=== PATIENT | male | born 1940 | race Two or more races ===

== ENCOUNTER 2016-11-03 14:39 | Day surgery (SDC) | payer MEDICARE, OTHER ==
[2016-10-29 10:50] VITALS: BMI 32.1
[~2016-11-03 14:39] MED LIST: LACTATED RINGERS 1,000 ML IV SCH; LIDOCAINE 1% 20 ML VIAL (10MG/ML) FOR IV START INTRADERMA PRN
[2016-11-03 15:02] VITALS: TEMP 97.9
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
[2016-11-03] MEDS ORDERED: PROPOFOL 10 MG/ML 20 ML VIAL IV ONE (16:02)
[2016-11-03] MEDS ORDERED: LIDOCAINE 1% INJ 10MG/ML (20 ML MDV) ONE (16:02)
--- NOTE | 2016-11-03 16:20 | P.OP ---
Date of Procedure: 11/03/16 Preoperative Diagnosis: Screening colonoscopy Postoperative Diagnosis: Mild diverticulosis Procedure(s) Performed: Colonoscopy Anesthesia: MAC Surgeon: Pérez Demarco Pathology: none sent Condition: stable Disposition: PACU Description of Procedure: PROCEDURE: The patient was placed on the endoscopy table in the lateral position. Digital rectal examination was performed which revealed no abnormalities. The prostate was symmetrical without nodules. Flexible colonoscope was then placed in the patient's anus and passed throughout the entire colon. The ileocecal valve was visualized. The cecum, ascending, transverse, desc colon were normal. The scope was brought back the descending and sigmoid colon there is mild diverticular changes. The rectum was normal. Scope was withdrawn for patient.
[2016-11-03 16:29] VITALS: RESP 18
[2016-11-03 16:46] VITALS: BP 137/71; PULSE 54
== END 2016-11-03 16:54 | disposition home or self-care (01) ==
LOC: ORWHC2ENDO 14:39
PROVIDERS: ATTEND Surgery
DX: K57.30 Diverticulosis of large intestine without perforation or abscess without bleeding (principal); E78.5 Hyperlipidemia, unspecified; E07.9 Disorder of thyroid, unspecified; Z79.82 Long term (current) use of aspirin; Z79.899 Other long term (current) drug therapy; Z86.010 Personal history of colon polyps; Z87.891 Personal history of nicotine dependence
CPT/HCPCS: 45378; J2001; J2704

== ENCOUNTER → 2019-10-26 | Outpatient (CLI) | payer MEDICARE, OTHER ==
--- NOTE | 2019-10-26 11:12 | EST ---
EXERCISE STRESS AGE: 79 SEX: M HT: 74" WT: 250 PROTOCOL: Cardiolite Ortiz Stress Test STAGE: 2 DURATION OF EXERCISE: 4:44 HEART RATE REST: 57 BLOOD PRESSURE REST: 133/80 MAXIMUM HEART RATE ACHIEVED: 141 MAXIMUM BLOOD PRESSURE: 203/88 85% MPHR: 121 100% MPHR: 142 METS: 6.6 INDICATIONS: Chest pain. CLINICAL INFORMATION: Baseline EKG shows sinus rhythm, normal axis, normal intervals. Patient exercised on Ortiz protocol for a total of 4.5 minutes achieving 6 METS, 99% of predicted maximal heart rate without chest pain or diagnostic ST-segment depression. Occasional PVCs are noted throughout the study. CONCLUSION: 1. Limited exercise tolerance. 2. Negative stress test by EKG criteria. 3. Cardiolite portion of the stress test will be reported separately. MMODL / IJN: [id number] /
--- NOTE | 2019-10-26 13:56 | NM ---
EXAMINATION TYPE: NM stress cardiolite complete DATE OF EXAM: 10/26/2019 COMPARISON: NONE HISTORY: Chest pain TECHNIQUE: After the intravenous administration of 10.31 mCi Tc 99m Sestamibi - Cardiolite resting S PECT images acquired 55 minutes post injection. The patient received 25.1 mCi Tc 99m Sestamibi - Stress images obtained 10 minutes post injection . P atient was stressed under Ortiz protocol FINDINGS: Very minimal diminished radiotracer accumulation is along the distal lateral wall near the cardiac ap ex on stress images. This area has normal radiotracer on resting images. This is not as well-visualiz ed in the axial plane. This area appears to correlate with the polar map. Ejection fraction of 55% is normal. Wall motion appears normal IMPRESSION: Very small stress-induced ischemic change along the lateral wall adjacent to the cardiac apex with no rmal radiotracer at rest. Remaining radiotracer distribution is normal. Ejection fraction wall motion appears normal.
== END | disposition home or self-care (01) ==
LOC: RADNMMAIN 07:40
PROVIDERS: ATTEND Family Medicine
DX: R94.39 Abnormal result of other cardiovascular function study (principal)
CPT/HCPCS: 93017; 78452; A9500

== ENCOUNTER → 2021-07-09 | Day surgery (SDC) | payer MEDICARE, OTHER ==
[2021-07-07 10:29] VITALS: BMI 32.1
[~2021-07-09] MED LIST changes: +LIDOCAINE 1% (10MG/ML) FOR IV START INTRADERMA PRN; -LIDOCAINE 1% 20 ML VIAL (10MG/ML) FOR IV START INTRADERMA PRN; +PROPOFOL 10 MG/ML 20 ML VIAL IV ONE
[2021-07-09 09:49] VITALS: TEMP 97.4
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
--- NOTE | 2021-07-09 12:16 | P.OP ---
Date of Procedure: 07/09/21 Preoperative Diagnosis: Screening colonoscopy Postoperative Diagnosis: Diverticulosis Procedure(s) Performed: colonoscopy Anesthesia: MAC Surgeon: Pérez Demarco Pathology: none sent Condition: stable Disposition: PACU Description of Procedure: The patient's placed on the endoscopy table in the lateral position. He received IV sedation. Digital rectal exam was performed which revealed no abnormalities. The prostate was symmetric without nodules. Flexible colonoscope was then placed patient anus passed throughout the entire colon the ileocecal valve was visualized. Cecum, ascending and transverse colon appeared normal. In the descending and sigmoid colon there was moderate diverticular changes. The scope was then brought back the rectum and this appeared normal. Scope withdrawn for patient.
[2021-07-09 12:34] VITALS: BP 113/84; PULSE 56; RESP 14
== END ==
LOC: ORWHC2ENDO 08:51
PROVIDERS: ATTEND Surgery
DX: Z12.11 Encounter for screening for malignant neoplasm of colon (principal); K57.30 Diverticulosis of large intestine without perforation or abscess without bleeding; Z86.010 Personal history of colon polyps; E78.5 Hyperlipidemia, unspecified; E07.9 Disorder of thyroid, unspecified; R42 Dizziness and giddiness; Z98.890 Other specified postprocedural states; Z87.891 Personal history of nicotine dependence; Z97.2 Presence of dental prosthetic device (complete) (partial); M19.90 Unspecified osteoarthritis, unspecified site; Z80.9 Family history of malignant neoplasm, unspecified; Z79.82 Long term (current) use of aspirin; Z79.890 Hormone replacement therapy; Z79.899 Other long term (current) drug therapy
CPT/HCPCS: J2704; G0105

== ENCOUNTER → 2024-03-02 | Day surgery (SDC) | payer MEDICARE, OTHER ==
[~2024-03-02] MED LIST changes: +ALPRAZolam 0.25 MG TAB PO PRN; +ALPRAZolam 0.5 MG TAB PO PRN; +HEPARIN SODIUM 1,000 UN/ML (10ML VL) ONE; -LACTATED RINGERS 1,000 ML IV SCH; -LIDOCAINE 1% (10MG/ML) FOR IV START INTRADERMA PRN; +LIDOCAINE 1% INJ 10MG/ML (20 ML MDV) ONE; +NITROGLYCERIN SL TABS 0.4 MG TAB SUBLINGUAL PRN; -PROPOFOL 10 MG/ML 20 ML VIAL IV ONE; +VERAPAMIL 2.5 MG/ML 2 ML AMP ONE; +fentaNYL (PF) 50 MCG/ML 2 ML AMP ONE
[2024-03-02] MEDS: IV FLUID CONTINUATION 1,000 ML IV ONE (10:40)
[2024-03-02] MEDS: SODIUM CHLORIDE 0.9% 1,000 ML in EMPTY BAG 1 BAG IV SCH (10:40)
[2024-03-02] MEDS: ASPIRIN 325 MG TAB PO STA (10:59)
[2024-03-02 11:08] VITALS: TEMP 99
[2024-03-02] MEDS: MIDAZOLAM 2 MG/2 ML VIAL IVP ONE ×2 (12:13→12:17)
[2024-03-02] MEDS: fentaNYL (PF) 50 MCG/ML 2 ML AMP IVP ONE (12:13)
[2024-03-02] MEDS: LIDOCAINE 1% INJ 10MG/ML (20 ML MDV) SQ ONE (12:17)
[2024-03-02] MEDS: VERAPAMIL SYRINGE (5 MG/10 ML) INTRAARTER ONE (12:19)
[2024-03-02] MEDS: HEPARIN SODIUM 1,000 UN/ML (10ML VL) IV ONE (12:25)
[2024-03-02] MEDS: IOPAMIDOL-370 100ML BTL INJ ONE (12:28)
[2024-03-02] MEDS: HEPARIN SODIUM,PORCINE (1 ML) 2,500 UNIT in SODIUM CHLORIDE 0.9% 250 ML IRRIGATION PRN (12:35)
[2024-03-02] MEDS: HEPARIN SODIUM,PORCINE 10,000 UNIT in SODIUM CHLORIDE 0.9% 1,000 ML IRRIGATION PRN (12:35)
--- NOTE | 2024-03-02 12:44 | P.CARDCATH ---
Date of Procedure: 03/02/24 Description of Procedure: DIAGNOSTIC CORONARY ANGIOGRAPHY and LEFT HEART CATH REPORT PROCEDURES PERFORMED: Left heart catheterization Selective coronary angiography Moderate conscious sedation 18 mins Right radial access INDICATION: Abnormal nuclear stress test with moderate intensity moderate size reversible perfusion defect involving the lateral wall. CONSENT: I have explained the procedural steps of above-mentioned procedures in layman's terms to the patient. I discussed the risks (including but not limited to stroke, emergent vascular or cardiac surgery or ), benefits and alternative therapies for the above-mentioned procedure. I discussed the risks of sedation/analgesia and blood product administration (if indicated). The patient has indicated understanding and acceptance of these risks. Conscious Sedation: Patient's ECG, heart rate, blood pressure, pulse oximetry were monitored throughout the duration of procedure under my direct supervision. [2] mg Versed and [50] mcg Fentanyl were used for induction of moderate conscious sedation. Total duration of moderate concious sedation [25] minutes. PROCEDURE: After explaining the risks, benefits and alternatives of the above mentioned procedures in detail to the patient, informed consent was obtained. Patient was taken to the catheterization lab, prepped and draped in usual sterile fashion using universal precuations. 1% lidocaine was infiltrated over the right radial artery. A 6-Palauan sheath was placed and secured in the right radial artery using modified Seldinger technique. The sheath was flushed and 5 mg verapamil was administered intra- arterially. J tipped wire was advanced under fluoroscopic guidance. Once the wire tip reached aortic root [5000] units of IV heparin was given. Over the wire JR4 diagnostic catheter was advanced. The wire in place the catheter was manipulated to cross the aortic valve and entered into LV under fluoroscopy guidance. The wire was removed and the catheter was flushed. LV pressures were obtained and pullback was performed under fluoroscopy. Catheter was manipulated to selectively engage the right coronary ostium. Right coronary angiography was performed in different angiographic projections. The JR5 diagnostic catheter was exchanged for a JL 3.5 diagnostic catheter over the J-wire. The wire was removed, catheter was flushed and manipulated under fluoroscopy to selectively engaged the left coronary ostium. Left coronary angioplasty was performed in different angiographic projections. Catheter was removed over the wire. Radial sheath was flushed. The right radial sheath was removed and a TR band was placed with excellent patent hemostasis was achieved. The patient tolerated the procedure well. Patient was transported back to the post catheterization holding area in stable condition. Angiographic images were reviewed in detail. HEMODYNAMICS: Aortic Pressure: 120/60 mmHg. LV pressure: 124/0 mmHg. LVEDP 11 mmHg. There was no significant gradient across the aortic valve. SELECTIVE CORONARY ARTERIOGRAPHY: LEFT MAIN: The left main is short and large caliber vessel. It bifurcates into the LAD and circumflex. Left main appears angiographically normal. LEFT ANTERIOR DESCENDING CORONARY ARTERY: LAD is a large caliber vessel which wraps around to the apex. Proximal LAD appears angiographically normal. Mid LAD appears angiographically normal. Distal LAD appears angiographically normal. It gives rise to a medium diagonal branch which appears angiographically normal LEFT CIRCUMFLEX CORONARY ARTERY: It is dominant vessel. Left circumflex is a large caliber vessel. Proximal LCx appears angiographically normal. It gives rise to a large OM1 branch which appears angiographically normal. LCx after giving OM branch becomes a AV groove branch which is moderate caliber and appears angiographically normal. Distally it gives rise to 2 other OM branches appears angiographically normal. RIGHT CORONARY ARTERY: Nondominant vessel which is a small caliber. It appears angiographically normal IMPRESSION: Angiographically normal coronary arteries as described above. Normal left sided filling pressures PLAN: Aggressive risk factor modification per most recent ACC/AHA guidelines. 125 cc fluids for 4 hours Discharge home in 4 hours Follow-up in the office in 1-2 weeks. Performing Physician Adrián Noel MD, FACC, RPVI Thank you for allowing [facility] to participate in this patient's care. Feel free to reach out in case of any followup questions.
[2024-03-02 14:16] VITALS: BP 116/57; PULSE 58; RESP 14
== END ==
LOC: CATHCVL 10:06
PROVIDERS: ATTEND Student in an Organized Health Care Education/Training Program
DX: I49.5 Sick sinus syndrome (principal); Z79.899 Other long term (current) drug therapy; Z79.82 Long term (current) use of aspirin
CPT/HCPCS: 93458; 99152; C1769 ×2; C1894; J2250; J1644 ×3; J2001; J3010; Q9967